=== PATIENT | male | born 1955 | race Caucasian/White ===

== ENCOUNTER 2017-01-17 11:12 | Inpatient (IN) | payer MEDICARE, OTHER ==
--- NOTE | ~2017-01-17 | CN ---
Consultation Report [facility] [address] [place]. [address] NAME: BENNIE FAULKNER : 57 STATUS : ADM IN PAT#: [id number] AGE: 61 ADM/REG DATE : 01/17/17 MR#: [id number] REPORT SERV DATE: 01/19/17 DICTATED BY: MARCK PAUL DATE: 01/18/17 REPORT STATUS : Draft TRANSCRIBED BY: MODL DATE: 01/18/17 DATE OF CONSULTATION: 01/18/2017 CHIEF COMPLAINT: Shortness of breath in a patient with a history of aspiration pneumonia. HISTORY OF PRESENT ILLNESS: Mr. Bennie Faulkner is a 61-year-old white male with a complicated past medical history, which would include esophageal cancer, status post chemo and radiation, previous aspiration pneumonia, severe COPD, and schizoaffective disorder, who presents to [facility] Emergency Room with complaints of worsening shortness of breath. It should be noted that Mr. Faulkner was hospitalized as recently as 3 to 4 weeks ago, at [facility] for pneumonia like symptoms. The patient has had a difficult course in the interim. Mr. Faulkner is followed in our outpatient clinic by Dr. Cris Stiles. He is on a pulmonary regimen of albuterol, Advair, and INCRUSE ELLIPTA. He chronically requires oxygen at 2 L. His brother who is currently at bedside states that he does have bouts of snoring at night and nonrestorative sleep. The patient quit smoking approximately two years ago, prior to this time, he smoked one pack a day for a period of forty years. He has a limited exercise tolerance. As previously mentioned, Mr. Faulkner was hospitalized as recently as 3 to 4 weeks ago, at [facility] for pneumonia like symptoms. He did eventually improve and was discharged home. Unfortunately, he had some worsening in his shortness of breath and this culminated in his presentation to [facility] Emergency Room. Upon arrival, he was found to be normotensive and afebrile. He had an oxygenation saturation of 94% on 4 L. Initial blood work revealed a white blood cell count of 7400. He did eventually undergo a CT of the chest, which demonstrated areas of consolidation in the left lung that was consistent with pneumonia. Underlying pathology could not be ruled out. The patient does have pulmonary nodules as well as mediastinal lymphadenopathy. For the aforementioned reasons, he has been referred to the Pulmonary service for further assessment. It should be noted that, Mr. Faulkner does have some difficulty providing a good history. His brother is at bedside, who was very helpful with the following information. Currently Mr. Faulkner states that, he is breathing better than when he first presented. He has less shortness of breath. He is on 4 L of supplemental oxygen. He is not producing any purulent sputum. He denies any wheezing in his chest. He has had no recent episodes of hemoptysis. The patient denies any overt aspiration events over the last few days. His brother states that, he does have a tendency to eat exceedingly large bites of food and galarza through his meals, which would raise the concern for aspiration. The patient does have known severe COPD. He has had previous empyema requiring decortication. The patient currently denies any murmurs, angina, or palpitations. He denies any dependent edema. He denies any paroxysmal nocturnal dyspnea. In regard to constitutional symptoms, currently denies fever, chills, nausea, vomiting, Consultation Report [address] [place]. [address] NAME: BENNIE FAULKNER : 57 STATUS : ADM IN [facility]#: [id number] AGE: 61 ADM/REG DATE : 01/17/17 MR#: [id number] REPORT SERV DATE: 01/19/17 DICTATED BY: MARCK PAUL DATE: 01/18/17 REPORT STATUS : Draft TRANSCRIBED BY: MODSandra DATE: 01/18/17 chest pain, abdominal pain, or edema. PAST MEDICAL HISTORY: 1. Severe COPD with oxygen dependence. 2. Aspiration pneumonia. 3. Chronic mediastinal lymphadenopathy. 4. Previous empyema requiring thoracotomy. 5. Gastroesophageal reflux disease. 6. Hypertension. 7. Schizoaffective disorder. 8. Esophageal cancer - adenocarcinoma, status post chemo and radiation. PAST SURGICAL HISTORY: 1. Hemorrhoidectomy. 2. Tonsillectomy and adenoidectomy. 3. Left thoracotomy. 4. Left inguinal hernia repair. FAMILY HISTORY: The patient denies a family history of lung disease. SOCIAL HISTORY: The patient currently lives at home. He has family members, who live close by and insists with his care. He denies any known exposures to dust, silica, or asbestos. TOBACCO/ALCOHOL: As previously mentioned, the patient quit smoking approximately two years ago, prior to this time, he smoked approximately one pack a day for a period of forty years. He denies any recent alcohol or illicit drug use. MEDICATIONS: 1. Albuterol. 2. Amlodipine 5 mg. 3. Atenolol 50 mg. 4. Depakote 500 mg. 5. Escitalopram 10 mg. 6. Advair. 7. Minoxidil 2.5 mg. 8. Mirtazapine 30 mg. 9. Olanzapine 10 mg. 10.Artane 5 mg. 11.INCRUSE ELLIPTA. ALLERGIES: THE PATIENT HAS NO KNOWN DRUG ALLERGIES. REVIEW OF SYSTEMS: A complete review of systems was performed with pertinent positives and negatives contained within the body of the HPI. Consultation Report [address] [address] NAME: BENNIE FAULKNER : 57 STATUS : ADM IN [facility]#: [id number] AGE: 61 ADM/REG DATE : 01/17/17 MR#: [id number] REPORT SERV DATE: 01/19/17 DICTATED BY: MARCK PAUL DATE: 01/18/17 REPORT STATUS : Draft TRANSCRIBED BY: SHANA DATE: 01/18/17 PHYSICAL EXAMINATION: VITAL SIGNS: Blood pressure is 114/55, heart rate is 59, T-max is 98.1, respiratory rate is 20, SpO2 is 93% on 4 L nasal cannula. GENERAL: The patient is a pleasant, well-nourished/well-developed male, who is not currently exhibiting any signs of acute distress. Skin: Skin with appropriate texture and turgor. No rashes, lesions, or ulcers. Nails are clear without cyanosis or clubbing. HEENT: Head: Skull is normocephalic/atraumatic. Facies symmetric. No masses or lesions. Eyes: Sclera anicteric, conjunctiva pink without exudates. Extra ocular movements intact. Pupils are equal, round, reactive to light. Ears: Auricles and tragus without pain to palpation. Hearing is grossly intact. Nose: Bilateral nasal patency. Sinuses without tenderness upon palpation. Throat: The patient has several dental caries. Mallampati class 3 to 4. Lips, oral mucosa, tongue, palate, and pharynx pink and moist without lesions. Uvula rises equally on phonation. Tongue midline without deviation. NECK: Neck supple. Trachea midline. No cervical lymphadenopathy appreciated. THORAX/LUNGS: Inspiratory crackles in the posterior lung lewis. Thorax is symmetric with equal chest rise. Breath sounds audible through entire field. No rales, wheezes, rhonchi CARDIOVASCULAR: Regular rate and rhythm. No murmurs, rubs, or gallops. Anterior chest without thrills, heaves, or lifts. ABDOMEN: Soft. Non-distended, non-tender. Active bowel sounds in all four quadrants. No hepatosplenomegaly noted. PERIPHERAL VASCULAR: No edema. No varicosities, stasis changes, open sores, ulcerations, or phlebitis. 2+ pulses in radial and dorsalis pedis. MUSCULOSKELETAL: Full AROM and PROM in all joints. No evidence of erythema, deformity, or crepitus. NEUROLOGIC: CN II - XII grossly intact. Good muscle bulk and tone bilaterally. Strength 5/5 throughout. PSYCHIATRIC: The patient demonstrates good judgment and insight. The patient is A&O x3. ACCESSORY DATA: Reveals a creatinine of 1.07, procalcitonin is 0.08. White blood cell count is 4600, hemoglobin and hematocrit 10.[address] of the chest reveals signs consistent with left-sided pneumonia. There is lymphadenopathy appreciated as well. There are stable pulmonary nodules. There are no signs consistent with pulmonary embolism. IMPRESSION: 1. Acute hypoxemic respiratory. 2. Healthcare-associated pneumonia. 3. Possible recurrent aspiration pneumonia. 4. Severe chronic obstructive pulmonary disease. 5. Schizoaffective disorder. 6. Stable mediastinal lymphadenopathy. 7. Stable pulmonary nodules. 8. Possible obstructive sleep apnea. Consultation Report [address] [address] NAME: BENNIE FAULKNER : 57 STATUS : ADM IN [facility]#: [id number] AGE: 61 ADM/REG DATE : 01/17/17 MR#: [id number] REPORT SERV DATE: 01/19/17 DICTATED BY: MARCK PAUL DATE: 01/18/17 REPORT STATUS : Draft TRANSCRIBED BY: SHANA DATE: 01/18/17 PLAN: 1. At this time, the patient is on appropriate antibiotic coverage. We will obtain sputum for Gram stain and culture. We will obtain urine antigens for Strep and Legionella. We will attempt to obtain records from [facility], especially encourage to previous antibiotic coverage. 2. In regard to the patient's possible recurrent aspiration pneumonia, this certainly could be secondary to his patulous esophagus as well as previous endoscopic procedures in the setting of a patient with esophageal cancer. We will proceed with a modified barium swallow to better assess his dysphagia. 3. In regard to the patient's severe COPD, we will place him on a full armamentarium and nebulized medications. 4. In regard to the patient's mediastinal lymphadenopathy, these have previously been biopsied and found to be negative for malignancy. We would certainly watch these moving forward. The aforementioned impression and plan has been discussed with Dr. Stiles, who will follow further recommendations. We thank you for this consult and look forward to participating in the care of Mr. Faulkner. BEBETO/CAMPOSL Marck Paul PA-C / [id number] CC: MD Anson Russell II, M.D.
--- NOTE | ~2017-01-17 | DS ---
Discharge Summary [address] [place]. [address] NAME: BENNIE FAULKNER : 57 STATUS : DIS IN PAT#: [id number] AGE: 61 ADM/REG DATE : 01/17/17 MR#: [id number] REPORT SERV DATE: 01/21/17 DICTATED BY: DATE: REPORT STATUS : Draft TRANSCRIBED BY: MODL DATE: 01/20/17 ADMISSION DATE: 01/17/2017 DISCHARGE DATE: 01/20/2017 DISCHARGE DIAGNOSES: 1. Healthcare-associated pneumonia/aspiration pneumonia. 2. Abdominal pain, acute, resolved. 3. Suspected aspiration, recurrent. 4. Schizophrenia. 5. History of seizures. 6. History of localized esophageal cancer. 7. Acute on chronic hypoxemic respiratory failure. CONSULTATIONS: Marck Cee PA-C, pulmonology. PERTINENT TESTS AND PROCEDURES: 1. Chest x-ray, 01/17/2017, impression: Bilateral asymmetric infiltrates. Left lung demonstrates a large wedge-shaped area of infiltrate. Infiltrates are superimposed on chronic lung disease. Chest worse compared to 09/16/2016 imaging. 2. CTA of chest, 01/17/2017, impression:. a. Areas of consolidation in the left lung indicating probable pneumonia. b. Minimal bilateral pulmonary nodules and areas of irregular fibrotic opacity, not significantly changed. c. Hilar and mediastinal lymph node prominence slightly increased. d. No evidence of pulmonary emboli. 3. Chest x-ray, 01/18/2017, impression: Stable left lung infiltrates and diffuse bilateral fibrotic capacity. No new abnormalities compared to 01/17/2017 imaging. 4. Modified barium swallow study, 01/19/2017, no aspiration indicated. 5. KUB, 01/19/2017, impression: Bowel gas pattern, normal. Contrast distributed along transverse and descending colon. No acute intraabdominal process. 6. Blood cultures x2 sites obtained, 01/17/2017, preliminary result, no growth at two days. HOSPITAL COURSE: Please refer to history and physical dated 01/17/[address] Marbin Salinas for complete details of the patient's initial presentation upon admission and health history. Please also refer to consultation, dated 01/19/2017 provided by Marck Cee, physician pharmacist assistant, pulmonology. Chief complaint upon admission "can not breathe." 1. Healthcare acquired pneumonia/aspiration pneumonia. The patient received antibiotic therapy to include Rocephin and vancomycin. Pulmonology was consulted as the patient is well known to their service and is followed in outpatient clinic by Dr. Cris Stiles. The patient has previous history of aspiration pneumonia, which could be secondary to the patient's history of localized esophageal cancer. On day of discharge, antibiotics Discharge Summary [address] [facility] [place]. [address] NAME: BENNIE FAULKNER : 57 STATUS : DIS IN PAT#: [id number] AGE: 61 ADM/REG DATE : 01/17/17 MR#: [id number] REPORT SERV DATE: 01/21/17 DICTATED BY: DATE: REPORT STATUS : Draft TRANSCRIBED BY: MODL DATE: 01/20/17 were narrowed, and the patient will receive cefdinir 300 mg p.o. twice daily x2 days to complete therapy. The patient will follow up with pulmonology within one month for repeat chest x-ray. 2. Acute on chronic hypoxemic respiratory failure. The patient has significant history of severe COPD with oxygen dependence and chronic hypoxemic respiratory failure. The patient is home supplemental oxygen dependent, 2 to 3 L per nasal cannula. At the time of discharge, the patient's oxygen requirements had returned to baseline, and his saturation was 98% on 3 L. The patient will continue to be managed by pulmonology in outpatient clinic. 3. Acute abdominal pain. Yesterday, the patient complained of acute onset of right upper and left lower abdominal pain since resolved. KUB was obtained and results were unremarkable. No additional interventions are indicated at this time. 4. Hypertension. The patient's blood pressure is stable at 120/61. Continue home dose of amlodipine and atenolol. 5. History of seizures. The patient has presented with no clinical signs or symptoms of seizure during this admission. Continue home medications. 6. Schizophrenia. The patient's mood has remained baseline throughout this admission. Continue home medications. 7. History of localized esophageal cancer. This patient is status post chemotherapy and radiation. DISCHARGE CONDITION: At the time of discharge, the patient is hemodynamically stable. Supplemental oxygen requirements have returned to baseline. DISCHARGE DIET: Regular diet as tolerated. DISCHARGE MEDICATIONS: 1. Norvasc 5 mg tablet p.o. twice daily. 2. Tenormin 50 mg tablet p.o. twice daily. 3. Caltrate 600 mg tablet p.o. daily. 4. Centrum vitamin one tablet p.o. daily. 5. Benadryl 25 mg tablet, take 100 mg p.o. at bedtime. 6. Depakote 500 mg tablet, take 1500 mg p.o. at bedtime. 7. Lexapro 10 mg tablet p.o. daily. 8. Minoxidil 2.5 mg tablet, take 7.5 mg p.o. twice daily. 9. Remeron 30 mg tablet p.o. daily at bedtime. 10.Zyprexa 10 mg tablet, take 40 mg p.o. at bedtime. 11.Carafate 1 mg tablet p.o. before meals and at bedtime. 12.Increase Ellipta one puff inhaled daily. 13.Artane 5 mg tablet, take 5 mg p.o. three times daily. 14.Ventolin metered dose inhaler two puffs inhaled every four hours as needed for shortness of breath. 15.Advair Diskus 100/50 one puff inhaled twice daily. 16.Tylenol 325 mg tablet, take 650 mg every four hours as needed. 17.Vitamin C one tablet p.o. daily. 18.Drdo-wed-plddhwd iron one tablet p.o. daily. 19.Melatonin one tablet p.o. daily, strength unknown. Discharge Summary [address] [address] NAME: BENNIE FAULKNER : 57 STATUS : DIS IN PAT#: [id number] AGE: 61 ADM/REG DATE : 01/17/17 MR#: [id number] REPORT SERV DATE: 01/21/17 DICTATED BY: DATE: REPORT STATUS : Draft TRANSCRIBED BY: MODSandra DATE: 01/20/17 20.Cefdinir 300 mg tablet p.o. daily x2 days to complete antibiotic therapy for pneumoniae. DISCHARGE INSTRUCTIONS: 1. Follow up with Dr. Stiles/Vel Pablo, nurse practitioner, Pulmonology in one to two weeks for office visit and repeat chest x-ray. The patient and his mother were instructed to return to the emergency department for any acute onset of fever 100.4 or greater lasting more than one hour, increased shortness of breath from baseline requiring higher supplemental O2, chest pain, syncopal episodes, intractable nausea, vomiting, diarrhea, or any other additional concerns that are deviations from his baseline status at the time of this discharge. DAREN/SHANA JAMI Ayon / [id number] CC: MD Anson Russell II, M.D.
--- NOTE | ~2017-01-17 | HP ---
History And Physical [address] [address] NAME: BENNIE FAULKNER : 57 STATUS : REG ER PAT#: [id number] AGE: 61 ADM/REG DATE : 01/17/17 MR#: [id number] REPORT SERV DATE: 01/17/17 DICTATED BY: BEATRICE SALINAS DATE: 01/17/17 REPORT STATUS : Draft TRANSCRIBED BY: MODL DATE: 01/17/17 DATE OF ADMISSION: 01/17/2017 CHIEF COMPLAINT: Cannot breathe. HISTORY OF PRESENT ILLNESS: This is a 61-year-old man who says he lives next door with mother. He has been here before with history of acute on chronic respiratory failure, MRSA pneumonia with suspected aspiration and recurrent bouts of pneumonia. He also has schizophrenia and history of localized esophageal cancer. Mr. Faulkner just says he could not breathe, otherwise, he denies fevers or other symptoms at home. He has been having normal bowel movements. No dysuria. He does occasionally cough when he eats. Importantly, the patient is a poor historian, so this is limited. REVIEW OF SYSTEMS: Review of systems was obtained. Full review of systems is negative with the exception of the above HPI. PAST MEDICAL HISTORY: 1. COPD. 2. History of schizophrenia with paranoia. 3. Parkinson's disease. 4. Esophageal cancer status post radiation followed with Dr. Boo and Dr. Mcintosh. 5. Wolff's esophagus. Followed by GI Dr. Manning. 6. Hypertension. 7. Reactive mediastinal lymphadenopathy. 8. History of left-sided empyema. 9. History of seizure. 10.History of recurrent pneumonia due to suspected aspiration. PAST SURGICAL HISTORY: Includes left inguinal hernia repair and left-sided empyema status post decortication with partial lung resection. ALLERGIES: NO KNOWN DRUG ALLERGIES. SOCIAL HISTORY: Quit smoking, on disability, living next door to his mom. FAMILY HISTORY: Includes diabetes. HOME MEDICATIONS: Pharmacy needs to follow up. Unfortunately, brother is at work, he cannot answer a lot of questions. List we have so far is albuterol p.r.n.; Norvasc 5 mg p.o. b.i.d.; atenolol 50 mg p.o. b.i.d.; calcium carbonate 600 mg p.o. daily; Benadryl 100 mg at bedtime; Depakote 1500 mg at bedtime; Lexapro 10 mg daily; Advair one puff b.i.d.; minoxidil 7.5 p.o. b.i.d.; Remeron 30 mg at bedtime; Zyprexa 40 mg at bedtime; Carafate 1 g before meals and at bedtime; Artane 5 mg p.o. b.i.d.; and Incruse Ellipta 1 puff daily. PHYSICAL EXAMINATION: History And Physical [address] [address] NAME: BENNIE FAULKNER : 57 STATUS : REG ER PAT#: [id number] AGE: 61 ADM/REG DATE : 01/17/17 MR#: [id number] REPORT SERV DATE: 01/17/17 DICTATED BY: BEATRICE SALINAS DATE: 01/17/17 REPORT STATUS : Draft TRANSCRIBED BY: SHANA DATE: 01/17/17 VITAL SIGNS: Temperature 98.7, blood pressure 114/63, pulse is 76, respiratory rate of 20, and saturating 94% on 4 L. GENERAL: This is a 61-year-old male, who appears stated age, sitting up in a stretcher in the ER. He is in no acute distress. HEENT: Pupils equal, round, and reactive to light. No scleral icterus. Mucous membranes are moist. NECK: Supple. Trachea is midline. CARDIOVASCULAR: Regular rate and rhythm with no appreciable murmurs. LUNGS: Exam is coarse with no expiratory wheezes noted. Symmetrical expansion. Normal respiratory effort. ABDOMEN: Soft, nontender, and nondistended. No appreciable masses. SKIN: Warm, dry, and intact without rash. PSYCHIATRIC: The patient has flat affect but is alert and cooperative. LABORATORY DATA: In the ER today, white blood cell count 7.4, hemoglobin 11.3, platelet count of 156. BMP with creatinine 1.2, otherwise unremarkable. IMAGING: Chest x-ray, bilateral asymmetric infiltrates. The left lung demonstrates a large wedge-shaped area of infiltrate. Infiltrates are superimposed on chronic lung disease. Chest is worse compared to August 2016. ASSESSMENT AND PLAN: 1. Recurrent lung infiltrates with history of suspected pneumonia due to aspiration. Given recent MRSA, we will cover with vancomycin while we are awaiting additional imaging. Given concern for possible PE and abnormal chest x-ray, there is a CTA pending. I will also consult Pulmonary Medicine and order speech evaluation. Place him on outpatient diet of mechanical soft. Continue ceftriaxone. 2. Acute on chronic respiratory failure. It appears he was on approximately 6 L at last discharge but again Pulmonary Medicine will be consulted, continue outpatient respiratory regimen in addition to DuoNeb. I do not hear wheezing. We will not start any inhalers at this time. 3. Suspected aspiration. Again Speech Therapy will be consulted. The patient was started on Carafate and PPI etc. by GI last admission. We will continue his outpatient regimen. 4. History of localized esophageal cancer. He can continue outpatient followup as appropriate. 5. Hypertension. Continue home medications with parameters. 6. Schizophrenia with history of parkinsonism. We will continue outpatient regimen. 7. History of seizure disorder. Continue outpatient medications. 8. Code status. We are unable to discuss with the patient, and brother is at work and unable to talk right now. This will need to be addressed after admission. 9. Deep vein thrombosis prophylaxis will be with enoxaparin. SHANNON/SHANA History And Physical [address] [address] NAME: BENNIE FAULKNER : 57 STATUS : REG ER PAT#: [id number] AGE: 61 ADM/REG DATE : 01/17/17 MR#: [id number] REPORT SERV DATE: 01/17/17 DICTATED BY: BEATRICE SALINAS DATE: 01/17/17 REPORT STATUS : Draft TRANSCRIBED BY: MODL DATE: 01/17/17 Beatrice Salinas MD / [id number] CC: Anson Espinosa M.D.
[2017-01-17 11:05] LABS: BASOPHILS 0.4 %; BASOPHILS ABSOLUTE 0.03 10/3/uL (0.0-0.16); EOSINOPHILS 2.2 %; EOSINOPHILS ABSOLUTE 0.16 10/3/uL (0.0-0.53); ER CBC TAT 0 Hrs 10 Mins; HEMOGLOBIN 11.3 g/dL (13.6-17.8); IMMATURE GRANULOCYTES 2.2 %; IMMATURE GRANULOCYTES ABSOLUTE 0.16 10/3/uL (0.0-0.11); LYMPHOCYTES 15.5 %; LYMPHOCYTES ABSOLUTE 1.14 10/3/uL (0.67-4.30); MANUAL DIFF NO %; MEAN CORPUS HGB CONC 33.2 g/dL (32.0-36.0); MEAN CORPUSCULAR HEMOGLOB 28.5 pg (26.0-34.0); MEAN CORPUSCULAR VOLUME 85.6 fL (80-100); MEAN PLATELET VOLUME 9.1 fL (9.2-13.0); MONOCYTES 2.7 %; NEUTROPHILS ABSOLUTE 5.67 10/3/uL (2.02-8.40); PLATELET COUNT 156 10/3/uL (150-400); RED CELL COUNT 3.97 10/6/uL (4.7-6.1); WHITE BLOOD CELLS 7.4 10/3/uL (4.5-10.5)
[2017-01-17 11:12] LABS: INTERNATIONAL NORMAL RATI 1.2 UNITS (-); PARTIAL THROMBO TIME 34.9 SEC (22.5-37.2); PROTIME (NOT ORD) 14.6 SEC (12.0-14.5)
[~2017-01-17 11:12] MED LIST: ADVAIR100 INH; ADVAIR250 INH; AMLACTIN121 TOP; ART2 PO; ASCORBIC ACID PO; ATEN50 PO; BACDS PO; BEN25 PO; BENADRYL 50 MG50 MG PO; BUM1 PO; CALTRA600D PO; CALTRAT600 PO; CAT2 PO; COG0.5 PO; COG2 PO; COGEN1 PO; DEPAKOT250 PO; DEPAKOT500 PO; DEPAKOTEER PO; DESONIDE0.052 TOP; DESOWEN TOP; DIOV160 PO; FANAPT10 MG PO; FANAPT4 MG PO; FLUPHENAZINE10 MG OR; FLUPHENAZINE10 MG PO; HCTZ25B PO; HEMOCYTE324 MG PO; IRON PO; LANTUS SC; LATUDA PO; LEVAQUIN750 MG PO; LEXAPRO10 PO; LEXAPRO5 MG PO; LONITEN2.5 PO; METAMUCIL CAN7 OZ PO; MULTIPLE VIT PO; MULTIVIT/MIN PO; MULTIVITAMI1 PO; NICODERM C21 MG/241 TOP; NORV5 PO; OTC VITAMIN C PO; PAX20 PO; PRILO PO; PRILOSEC40 MG PO; PROAIR HFA INH; PROLIXIN 1 MG TA1 MG OR; PROLIXIN 1 MG TA1 MG PO; PROVHFA INH; REMERON30 MG PO; SEROQUEL200 MG PO; SEROQUEL300 MG PO; SEROQUEL400 MG PO; SPIRIVA INH; STERAPRED DS10 MG; SUCR PO; TRIHEXYPHEN5 MG PO; TRIHEXYPHENIDYL 5 MG; V5 PO; VENTOLIN HFA INH; VITC500 PO; VOLTAREN1 % TOP; ZANTAC300 MG PO; ZITHROMAX500 MG PO; ZOL50 PO; ZYPREXA10 MG PO; ZYPREXA15 MG PO; [UNRECOGNIZED DRUG - OTHER] IM
[2017-01-17 11:31] LABS: BUN (BLOOD UREA NITROGEN) 18 MG/DL (6-23); CALCIUM, SERUM 9.5 MG/DL (8.5-10.4); CHLORIDE, SERUM 104 MMOL/L (96-112); CO2 (CARBON DIOXIDE) 29 MMOL/L (24-34); CREATININE 1.26 MG/DL (0.70-1.30); GFR AFRICAN AMERICAN 71 ML/MIN (>=60); GFR NON AFRICAN AMERICAN 62 ML/MIN (>=60); GLUCOSE, SERUM 98 MG/DL (60-99); POTASSIUM, SERUM 4.3 MMOL/L (3.5-5.3); SODIUM, SERUM 143 MMOL/L (135-148); TROPONIN I <0.02 NG/ML (<0.05)
[2017-01-17 11:33] LABS: CHEST PAIN PROFILE TAT 0 Hrs 36 Mins
[2017-01-17] MEDS ORDERED: CELEXA10 PO (13:21)
[2017-01-17] MEDS ORDERED: ZYPREXA10 MG PO (13:21)
[2017-01-17] MEDS ORDERED: DEPAKOT500 (13:30)
[2017-01-17] MEDS ORDERED: LEXAPRO10 (13:30)
[2017-01-17] MEDS ORDERED: NORVASC (13:31)
[2017-01-17] MEDS ORDERED: MINOXIDIL ×2 (13:31→13:37)
[2017-01-17] MEDS ORDERED: ARTANE 5 MG TAB5 MG (13:31)
[2017-01-17] MEDS ORDERED: ATEN50 PO ×2 (13:32→13:43)
[2017-01-17] MEDS ORDERED: REMERON30 MG (13:32)
[2017-01-17] MEDS ORDERED: BENADRYL (13:32)
[2017-01-17] MEDS ORDERED: DEPAKOT500 PO ×2 (13:34→13:42)
[2017-01-17] MEDS ORDERED: LONITEN2.5 PO ×2 (13:34→13:42)
[2017-01-17] MEDS ORDERED: LEXAPRO10 PO ×2 (13:34→13:42)
[2017-01-17] MEDS ORDERED: NORV5 PO ×2 (13:34→13:43)
[2017-01-17] MEDS ORDERED: DEPAKOTE (13:36)
[2017-01-17] MEDS ORDERED: LEXAPRO (13:36)
[2017-01-17] MEDS ORDERED: ZYPREXA (13:37)
[2017-01-17] MEDS ORDERED: ZYPREXA ZYDI20 MG PO (13:42)
[2017-01-17] MEDS ORDERED: BEN25 PO (13:43)
[2017-01-17] MEDS ORDERED: ARTANE 5 MG TAB5 MG PO (13:43)
[2017-01-17] MEDS ORDERED: REMERON30 MG PO (13:43)
[2017-01-17] MEDS ORDERED: ADVAIR INH (13:44)
[2017-01-17] MEDS ORDERED: INCRUSE ELLI62.5 MCG INH (13:44)
[2017-01-17] MEDS ORDERED: SUCR PO (13:44)
[2017-01-17] MEDS ORDERED: VENTOLIN HFA INH (13:44)
[2017-01-17] MEDS ORDERED: CALTRAT600 PO (13:45)
[2017-01-17] MEDS ORDERED: *UNABLE3 (13:45)
[2017-01-17 19:25] LABS: PROCALCITONIN 0.08 ng/mL (<0.5)
[2017-01-17] MEDS ORDERED: CENTRUM PO (19:27)
[2017-01-17] MEDS ORDERED: FERROUS SULF325 M1 PO (19:28)
[2017-01-17] MEDS ORDERED: VITC500 PO (19:28)
[2017-01-17] MEDS ORDERED: MELATONIN5 M1 PO (19:29)
[2017-01-17 21:49] LABS: ASCORBIC ACID (UR NOT ORDER) 20 (NEG); BILIRUBIN, URINE NEGATIVE (NEG); KETONE, URINE NEGATIVE (NEG); LEUKOCYTE ESTERASE(NOT OR NEG (NEG); WBC (NOT ORDERED) (RFLEX) < 1 (0-5)
[2017-01-18 04:19] LABS: BASOPHILS 0.2 %; BASOPHILS ABSOLUTE 0.01 10/3/uL (0.0-0.16); EOSINOPHILS 3.5 %; EOSINOPHILS ABSOLUTE 0.16 10/3/uL (0.0-0.53); HEMATOCRIT 31.8 % (40.0-51.0); HEMOGLOBIN 10.4 g/dL (13.6-17.8); IMMATURE GRANULOCYTES 3.7 %; IMMATURE GRANULOCYTES ABSOLUTE 0.17 10/3/uL (0.0-0.11); LYMPHOCYTES ABSOLUTE 0.97 10/3/uL (0.67-4.30); MEAN CORPUS HGB CONC 32.7 g/dL (32.0-36.0); MEAN CORPUSCULAR VOLUME 85.5 fL (80-100); MEAN PLATELET VOLUME 8.7 fL (9.2-13.0); MONOCYTES 8.2 %; MONOCYTES ABSOLUTE 0.38 10/3/uL (0.21-1.20); NEUTROPHILS 63.4 %; NEUTROPHILS ABSOLUTE 2.92 10/3/uL (2.02-8.40); PLATELET COUNT 127 10/3/uL (150-400); RED CELL COUNT 3.72 10/6/uL (4.7-6.1); WHITE BLOOD CELLS 4.6 10/3/uL (4.5-10.5)
[2017-01-18 04:21] LABS: MANUAL DIFF NO %
[2017-01-18 04:27] LABS: BUN (BLOOD UREA NITROGEN) 13 MG/DL (6-23); CALCIUM, SERUM 9.1 MG/DL (8.5-10.4); CHLORIDE, SERUM 104 MMOL/L (96-112); CO2 (CARBON DIOXIDE) 31 MMOL/L (24-34); CREATININE 1.07 MG/DL (0.70-1.30); GFR AFRICAN AMERICAN 87 ML/MIN (>=60); GFR NON AFRICAN AMERICAN 75 ML/MIN (>=60); GLUCOSE, SERUM 104 MG/DL (60-99); POTASSIUM, SERUM 4.3 MMOL/L (3.5-5.3); SODIUM, SERUM 144 MMOL/L (135-148)
[2017-01-19 04:49] LABS: BASOPHILS 0.1 %; BASOPHILS ABSOLUTE 0.01 10/3/uL (0.0-0.16); EOSINOPHILS 2.1 %; EOSINOPHILS ABSOLUTE 0.18 10/3/uL (0.0-0.53); HEMOGLOBIN 11.6 g/dL (13.6-17.8); IMMATURE GRANULOCYTES 1.3 %; IMMATURE GRANULOCYTES ABSOLUTE 0.11 10/3/uL (0.0-0.11); LYMPHOCYTES 7.9 %; LYMPHOCYTES ABSOLUTE 0.69 10/3/uL (0.67-4.30); MEAN CORPUS HGB CONC 33.1 g/dL (32.0-36.0); MEAN CORPUSCULAR HEMOGLOB 28.6 pg (26.0-34.0); MEAN CORPUSCULAR VOLUME 86.2 fL (80-100); MEAN PLATELET VOLUME 10.5 fL (9.2-13.0); MONOCYTES 6.7 %; MONOCYTES ABSOLUTE 0.58 10/3/uL (0.21-1.20); NEUTROPHILS 81.9 %; NEUTROPHILS ABSOLUTE 7.11 10/3/uL (2.02-8.40); RBC DISTRIBUTION WIDTH 13.7 % (12.0-16.0); RED CELL COUNT 4.06 10/6/uL (4.7-6.1)
[2017-01-19 04:50] LABS: MANUAL DIFF NO %; PLATELET COUNT 217 10/3/uL (150-400); WHITE BLOOD CELLS 8.7 10/3/uL (4.5-10.5)
[2017-01-19 05:07] LABS: BUN (BLOOD UREA NITROGEN) 13 MG/DL (6-23); CALCIUM, SERUM 9.4 MG/DL (8.5-10.4); CHLORIDE, SERUM 106 MMOL/L (96-112); CO2 (CARBON DIOXIDE) 33 MMOL/L (24-34); CREATININE 1.14 MG/DL (0.70-1.30); GFR AFRICAN AMERICAN 81 ML/MIN (>=60); GFR NON AFRICAN AMERICAN 70 ML/MIN (>=60); GLUCOSE, SERUM 92 MG/DL (60-99); POTASSIUM, SERUM 4.9 MMOL/L (3.5-5.3); SODIUM, SERUM 144 MMOL/L (135-148)
[2017-01-20 07:30] LABS: HEMATOCRIT 33.5 % (40.0-51.0); HEMOGLOBIN 10.8 g/dL (13.6-17.8); MEAN CORPUS HGB CONC 32.2 g/dL (32.0-36.0); MEAN CORPUSCULAR HEMOGLOB 27.6 pg (26.0-34.0); MEAN CORPUSCULAR VOLUME 85.7 fL (80-100); RBC DISTRIBUTION WIDTH 13.8 % (12.0-16.0); RED CELL COUNT 3.91 10/6/uL (4.7-6.1); WHITE BLOOD CELLS 5.8 10/3/uL (4.5-10.5)
[2017-01-20 07:32] LABS: MANUAL DIFF YES %; PLATELET COUNT 128 10/3/uL (150-400)
[2017-01-20 07:45] LABS: BUN (BLOOD UREA NITROGEN) 14 MG/DL (6-23); CALCIUM, SERUM 9.2 MG/DL (8.5-10.4); CHLORIDE, SERUM 104 MMOL/L (96-112); CO2 (CARBON DIOXIDE) 31 MMOL/L (24-34); CREATININE 0.94 MG/DL (0.70-1.30); GFR AFRICAN AMERICAN 102 ML/MIN (>=60); GFR NON AFRICAN AMERICAN 88 ML/MIN (>=60); GLUCOSE, SERUM 90 MG/DL (60-99); POTASSIUM, SERUM 4.3 MMOL/L (3.5-5.3); SODIUM, SERUM 142 MMOL/L (135-148); VANCOMYCIN TROUGH 13.1 MCG/ML (10.0-20.0)
[2017-01-20 09:16] LABS: BAND NEUTROPHILS 2 %; EOSINOPHILS 2 %; EOSINOPHILS ABSOLUTE (CALC) 0.12 10/3/uL (0.0-0.53); IMMATURE GRANS ABSOLUTE (CALC) 0.06 10/3/uL (0.0-0.11); LYMPHOCYTES 12 %; METAMYELOCYTES 1 %; MONOCYTES 10 %; MONOCYTES ABSOLUTE (CALC) 0.58 10/3/uL (0.21-1.20); NEUTROPHILS ABSOLUTE (CALC) 4.35 10/3/uL (2.02-8.40); SEGMENTED NEUTROPHIL (0) 73 %; TOTAL NUCLEATED CELLS 100
[2017-01-20 09:17] LABS: PLATELET ESTIMATE SLT DEC (ADEQUATE); RBC MORPHOLOGY NORM (NORMAL)
[2017-01-20] MEDS ORDERED: T PO (14:56)
[2017-01-20] MEDS ORDERED: OMNICEF300 PO (14:58)
[2017-07-01] MEDS ORDERED: METAMUCIL CAN7 OZ PO (15:36)
[2017-07-01] MEDS ORDERED: REMERON30 MG PO (15:36)
== END 2017-01-20 18:39 | disposition home or self-care (01) | DRG 177 ==
LOC: ER 11:12 → 4EA 16:24
PROVIDERS: Emergency Medicine; Internal Medicine; Nurse Practitioner Family
DX: J69.0 Pneumonitis due to inhalation of food and vomit (principal); J96.21 Acute and chronic respiratory failure with hypoxia; J44.9 Chronic obstructive pulmonary disease, unspecified; Y95 Nosocomial condition; F25.9 Schizoaffective disorder, unspecified; G47.33 Obstructive sleep apnea (adult) (pediatric)
CPT/HCPCS: 71010; 71275; 74000; 74230; 80048; 80202; 81001; 83735; 84145; 84484; 85025; 85610; 85730; 87040; 87449; 92611-GN; 93005; 94640; 97161-GP; 99285; A9270-GY; G8978-CI-GP; G8979-CI-GP; G8980-CI-GP; G8996-CJ-GN; G8997-CJ-GN; G8998-CJ-GN; J3370; Q9967

== ENCOUNTER 2017-02-04 08:26 | Day surgery (SDC) | payer MEDICARE, OTHER ==
--- NOTE | ~2017-02-04 | EGD ---
EGD REPORT [facility] [address] [place] 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 Estimated blood loss: None. Procedure: Pre-Anesthesia Assessment: - ASA Grade Assessment: IV - A patient with severe systemic disease that is a constant threat to life. After obtaining informed consent, the endoscope was passed under direct vision. Throughout the procedure, the patient's blood pressure, pulse, and oxygen saturations were monitored continuously. The GIF IT [id number] was introduced through the mouth, and advanced to the second part of duodenum. The upper GI endoscopy was accomplished without difficulty. The patient tolerated the procedure well. Findings: The esophagus and gastroesophageal junction were examined with white light. Wolff's esophagus was present. Nodularity was present at 39 cm. Preparations were made for mucosal resection. Band ligator and snare mucosal resection was successfully performed. The esophagus and gastroesophageal junction were examined with white light. Wolff's esophagus was present. Nodularity was present at 37 cm. This area would not suction into cap. Coagulation for tissue destruction using argon plasma at 1 liter/minute and 25 sunshine was successful. The esophagus and gastroesophageal junction were examined with white light. Wolff's esophagus was present, extending from the upper extent of the gastric folds which were at 39 cm from the incisors to the Z-line which was at 39 cm from the incisors. Scattered islands of salmon-colored mucosa were present from 25 to 39 cm. The maximum longitudinal extent of these esophageal mucosal changes was 14 cm in length. A medium-sized hiatus hernia was present. The exam of the stomach was otherwise normal. The examined duodenum was normal. EGD REPORT [address] [place]. [address] NAME: BENNIE FAULKNER : [birth year] STATUS : [place] [facility] [place] [place] PAT#: [id number] AGE: 61 ADM/REG DATE : 02/04/17 MR#: [id number] REPORT SERV DATE: 02/04/17 DICTATED BY: STEPH CASTILLO DATE: 02/04/17 REPORT STATUS : Draft TRANSCRIBED BY: [employer] DATE: 02/04/17 Impression: - Wolff's esophagus. - Wolff's esophagus. Treated with thermal therapy. - Wolff's esophagus. - Hiatus hernia. - Normal examined duodenum. - Mucosal resection was successfully performed. Recommendation: - Repeat the upper endoscopy in 3 months for retreatment. 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 All rights reserved. The codes documented in this report are preliminary and upon manager multicultural review may be revised to meet current compliance requirements. STEPH ANNA, 02/04/2017 10:33 AM Number of Addenda: 0 Note Initiated On: 02/04/2017 10:00 AM Scope Withdrawal Time 0 hours 0 minutes 0 seconds [address] [place] [address]
[~2017-02-04 08:26] MED LIST changes: +*UNABLE3; +ADVAIR INH; +ARTANE 5 MG TAB5 MG; +ARTANE 5 MG TAB5 MG PO; +BENADRYL; +CELEXA10 PO; +CENTRUM PO; +DEPAKOT500; +DEPAKOTE; +FERROUS SULF325 M1 PO; +INCRUSE ELLI62.5 MCG INH; +LEXAPRO; +LEXAPRO10; +MELATONIN5 M1 PO; +MINOXIDIL; +NORVASC; +OMNICEF300 PO; +REMERON30 MG; +T PO; +ZYPREXA; +ZYPREXA ZYDI20 MG PO
[2017-07-01] MEDS ORDERED: METAMUCIL CAN7 OZ PO (15:36)
[2017-07-01] MEDS ORDERED: REMERON30 MG PO (15:36)
== END 2017-02-04 23:59 | disposition home or self-care (01) ==
LOC: DMU 08:26
PROVIDERS: Internal Medicine Gastroenterology
PROC: 0D558ZZ Destruction of Esophagus, Via Natural or Artificial Opening Endoscopic (ICD-10-PCS; principal; 2017-02-04 09:30)
PROC: 0DB48ZZ Excision of Esophagogastric Junction, Via Natural or Artificial Opening Endoscopic (ICD-10-PCS; 2017-02-04 09:30)
DX: D00.1 Carcinoma in situ of esophagus (principal); K22.711 Barrett's esophagus with high grade dysplasia; G20 Parkinson's disease; I10 Essential (primary) hypertension; J44.9 Chronic obstructive pulmonary disease, unspecified; J45.909 Unspecified asthma, uncomplicated; J18.9 Pneumonia, unspecified organism; K21.9 Gastro-esophageal reflux disease without esophagitis; K44.9 Diaphragmatic hernia without obstruction or gangrene; F41.9 Anxiety disorder, unspecified; F32.9 Major depressive disorder, single episode, unspecified; D64.9 Anemia, unspecified; Z79.899 Other long term (current) drug therapy; Z90.89 Acquired absence of other organs; Z98.890 Other specified postprocedural states
CPT/HCPCS: 88305

== ENCOUNTER 2017-03-21 10:05 | Day surgery (SDC) | payer MEDICARE, OTHER ==
--- NOTE | ~2017-03-21 | EGD ---
EGD REPORT [facility] [address] [place]. 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 Estimated blood loss: None. Procedure: Pre-Anesthesia Assessment: - ASA Grade Assessment: III - A patient with severe systemic disease. After obtaining informed consent, the endoscope was passed under direct vision. Throughout the procedure, the patient's blood pressure, pulse, and oxygen saturations were monitored continuously. The GIF [id number] was introduced through the mouth, and advanced to the second part of duodenum. The upper GI endoscopy was accomplished without difficulty. The patient tolerated the procedure well. Findings: The esophagus and gastroesophageal junction were examined with white light. Wolff's esophagus was present. Nodularity was present at 40 cm (GE junction) in two separate areas measured about 1 cm each. Preparations were made for mucosal resection. Band ligator and snare mucosal resection was successfully performed. Wolff's esophagus was present in the upper third of the esophagus, in the middle third of the esophagus and in the lower third of the esophagus. A medium-sized hiatus hernia was present. The exam of the stomach was otherwise normal. The cardia and gastric fundus were normal on retroflexion. The examined duodenum was normal. Impression: - Wolff's esophagus. - Wolff's esophagus. - Hiatus hernia. - Normal examined duodenum. - Mucosal resection was successfully performed. Recommendation: - Patient has a contact number available for emergencies. The signs and symptoms of potential delayed EGD REPORT [address] [address] NAME: BENNIE FAULKNER : [birth year] [place] [facility] [place]#: [id number] AGE: 61 ADM/REG DATE : 03/21/17 MR#: [id number] REPORT SERV DATE: 03/21/17 DICTATED BY: STEPH CASTILLO DATE: 03/21/17 REPORT STATUS : Draft TRANSCRIBED BY: [employer] DATE: 03/21/17 complications were discussed with the patient. Return to normal activities tomorrow. Written discharge instructions were provided to the patient. - Return to previous diet. - Continue present medications. - Await pathology results. - Repeat the upper endoscopy in 3 months for retreatment. 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 All rights reserved. The codes documented in this report are preliminary and upon patrol sergeant sheriff's office review may be revised to meet current compliance requirements. STEPH CASTILLO, 03/21/2017 1:43 PM Number of Addenda: 0 Note Initiated On: 03/21/2017 12:35 PM [address] [address]
[2017-07-01] MEDS ORDERED: METAMUCIL CAN7 OZ PO (15:36)
[2017-07-01] MEDS ORDERED: REMERON30 MG PO (15:36)
== END 2017-03-21 23:59 | disposition home health service (06) ==
LOC: DMU 10:05
PROVIDERS: Internal Medicine Gastroenterology
PROC: 0DB48ZZ Excision of Esophagogastric Junction, Via Natural or Artificial Opening Endoscopic (ICD-10-PCS; principal; 2017-03-21 12:00)
DX: C16.0 Malignant neoplasm of cardia (principal); K22.711 Barrett's esophagus with high grade dysplasia; K44.9 Diaphragmatic hernia without obstruction or gangrene; G20 Parkinson's disease; G40.909 Epilepsy, unspecified, not intractable, without status epilepticus; I10 Essential (primary) hypertension; J45.909 Unspecified asthma, uncomplicated; J44.9 Chronic obstructive pulmonary disease, unspecified; K21.9 Gastro-esophageal reflux disease without esophagitis; N17.9 Acute kidney failure, unspecified; D64.9 Anemia, unspecified; F25.9 Schizoaffective disorder, unspecified; F32.9 Major depressive disorder, single episode, unspecified; F41.9 Anxiety disorder, unspecified; Z79.899 Other long term (current) drug therapy; Z87.891 Personal history of nicotine dependence; Z86.010 Personal history of colon polyps; Z98.890 Other specified postprocedural states
CPT/HCPCS: 88305; 88360; 88367; 88367-59; 94640